=== PATIENT | male | born 1990 | race Caucasian/White ===

== ENCOUNTER 2021-08-11 10:59 | Emergency (ER) | payer SELFPAY ==
[~2021-08-11] VITALS: Ht 160 cm; Wt 75.0 kg
[2021-08-11] MEDS ORDERED: ONDANSETRON 4MG/2ML VIAL IV ONE (11:40)
[2021-08-11] MEDS ORDERED: MORPHINE 4 MG/ML 1ML VIAL/SYRINGE (J2270) IV ONE (11:40)
[2021-08-11 12:29] LABS: RSV AMPLIFICATION NEGATIVE (NEGATIVE)
--- NOTE | 2021-08-11 13:33 | REP ---
INDICATION: syncope, severe tender frontal. COMPARISON: 02/09/2011 TECHNIQUE: Axial soft tissue and bone windows with coronal reconstructions provided. FINDINGS: Lateral ventricles are midline symmetric and without dilatation or displacement. Basal ganglia were symmetric and normal 3rd and 4th ventricles unremarkable. Cortical stripe is preserved. The ruggiero-white junction differentiation is well maintained. White matter tracts are normal. There is no vascular territory infarct, intracranial hemorrhage, mass or mass effect. Brainstem and cerebellum unremarkable. Posterior fossa without hemorrhage. Basal cisterns intact. Visualized mastoids without acute finding. There is some mucosal thickening of the posterior right ethmoid air cells with the visible right maxillary, bilateral sphenoid and frontal sinuses clear the left maxillary sinus is opacified without air-fluid level or some adjacent bony abnormality. I see no fracture of the skull base or calvarium. Visualized orbits and zygomatic arches are intact. IMPRESSION: 1. No intracranial hemorrhage, acute infarct, mass, edema or mass effect. Basal cisterns intact. 2. Opacification of the left maxillary antrum and some mucosal thickening in posterior ethmoid air cells on the right. The other sinuses were clear. No visible adjacent fractures or destructive lesions of the skull base or calvarium. <Electronically signed by Ruddy Alvarenga > 08/11/21 [id number]
--- NOTE | 2021-08-11 13:36 | REP ---
INDICATION: severe tender, SOB, L abd pain, syncope. COMPARISON: None. TECHNIQUE: Standard helical technique without intravenous or oral bowel preparatory contrast administration. Stone protocol utilized due to left flank pain. FINDINGS: The lung bases are clear. The liver, gallbladder, spleen, pancreas, adrenal glands, and kidneys are within normal limits. There is no nephroureterolithiasis, hydronephrosis, or hydroureter. There are no urinary bladder calcifications. 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 The bowel loops and the mesenteries are within normal limits. The abdominal aorta and para-aortic regions are within normal limits. There is no free fluid or free air. There is no mass or adenopathy. Bone window technique throughout the examination shows the osseous structures to be within normal limits. IMPRESSION: CT findings are within normal limits. <Electronically signed by David Paredes > 08/11/21 [id number]
--- NOTE | 2021-08-11 13:40 | REP ---
INDICATION: syncope, severe tender. COMPARISON: 11/06/2006 TECHNIQUE: Trauma protocol with the soft tissue and bone window axial images in both coronal and sagittal reconstructions. FINDINGS: Cable Supervisor image demonstrates cervical collar in place. This is contributing to some straightening of the spine versus muscle spasm. Vertebral body heights are unchanged. There is no evidence of an acute compression fracture. Disc space heights preserved. No prevertebral soft tissue swelling. Small calcification anterior longitudinal ligament at C5-6 and C6-7. The spinous processes, lamina, pedicles, facets, transverse processes and transverse foramina were intact throughout. I do not see facet arthropathy. There is no spinal or foraminal stenosis. The C1-2 relationships are normal on all projections. Craniocervical and cervicothoracic junction align normally. Portions of the 1st 4 rib pairs seen were unremarkable. Lung apices are clear. Neck soft tissues without acute finding. Tracheal airway intact. IMPRESSION: 1. Negative CT cervical spine for any acute compression fracture, malalignment, spinal or foraminal stenosis. No prevertebral swelling. Posterior elements intact. Craniocervical and cervicothoracic junctions align normally. Nothing acute. <Electronically signed by Ruddy Alvarenga > 08/11/21 [id number]
--- NOTE | 2021-08-11 13:41 | REP ---
INDICATION: severe tender, SOB, L abd pain, syncope COMPARISON: None. TECHNIQUE: Standard helical technique without contrast FINDINGS: Mediastinum and pulmonary fannie are within normal limits. There are no pleural or pericardial effusions. The imaged osseous structures are within normal limits. Evaluation of the lung mckee shows a 5 mm sized right upper lobe nodule. Lung mckee are otherwise clear. IMPRESSION: There is a 5 mm size right upper lobe nodule. According to the revised Fleischner society criteria this represents a category 2 lesion for which a 1 year follow-up chest CT is recommended. <Electronically signed by David Paredes > 08/11/21 [id number]
--- NOTE | 2021-08-11 13:51 | REPVR ---
PROCEDURE INFORMATION: Exam: CT Maxillofacial Without Contrast Exam date and time: 08/11/2021 1:20 PM Age: 30 years old Clinical indication: Injury or trauma; Fall; Blunt trauma (contusions or hematomas); Orbit/periorbital; Left; Additional info: Syncope, severe tender left maxilla, orbit TECHNIQUE: Imaging protocol: Computed tomography images of the face without contrast. Radiation optimization: All CT scans at this facility use at least one of these dose optimization techniques: automated exposure control; mA and/or kV adjustment per patient size (includes targeted exams where dose is matched to clinical indication); or iterative reconstruction. COMPARISON: No relevant prior studies available. FINDINGS: Orbital cavity: Orbits are normal. Globes are unremarkable. Bones/joints: No acute fracture. No destructive bony process identified. Paranasal sinuses: Opacified left maxillary sinus, lateral retraction of the medial maxillary sinus wall. Mastoid air cells: The left mastoid pneumatization is partially contracted consistent with prior chronic otomastoiditis changes. Soft tissues: Unremarkable. Dental: Carious left mandibular anterior central incisor. Carious right maxillary lateral incisor, left maxillary canine, bilateral maxillary 2nd and 3rd molars, bilateral mandibular 3rd molars, left mandibular 2nd molar. Oropharynx: Bilateral palatine tonsillar benign tonsilloliths. IMPRESSION: 1. No acute facial bony injury identified. 2. Left maxillary sinus atelectasis. 3. Dental carious disease. Electronically signed by: Mike Cadena On 08/11/2021 13:50:36 PM
--- NOTE | 2021-08-11 14:14 | REP ---
INDICATION: syncope, tender, SOB. COMPARISON: CT chest 08/11/2021 earlier today, chest x-ray 11/25/2006. TECHNIQUE: AP portable supine chest FINDINGS: Lungs hypoinflated. Heart size not enlarged for portable supine hypoinflated chest. No dense consolidation atelectasis or mass. No widening of the mediastinum. The aorta is grossly normal. Airway intact. Delia appear symmetric. Bones without acute finding. IMPRESSION: 1. Negative AP supine chest. Heart size normal for supine portable chest with limited level of inflation. No acute lung findings. The 5 mm nodule right upper lobe on CT cannot be visualized on this examination. No widening of the mediastinum. Bones grossly intact. <Electronically signed by Ruddy Alvarenga > 08/11/21 [id number]
[2021-08-11] MEDS ORDERED: ONDANSETRON 4 MG ORAL DISINTEGRATING TAB PO ONE (14:15)
[2021-08-11] MEDS ORDERED: NORCO, ANEXSIA 5/325MG TABLET (HYDROcodone/ACETAMINOPHEN) PO ONE (14:15)
--- NOTE | 2021-08-11 14:15 | REP ---
INDICATION: syncope, severe tender, decr. ROM. COMPARISON: None. TECHNIQUE: Three views of the left shoulder were performed. FINDINGS: The acromioclavicular and glenohumeral relationships are within normal limits. There is no acute fracture or destructive osseous lesion. IMPRESSION: Within normal limits <Electronically signed by David Paredes > 08/11/21 [id number]
--- OUTSIDE RECORDS SUMMARY | 2021-08-11 14:36 | CCD ---
Author Author [facility] Organization [facility] Address Unknown Phone Unavailable Support Name Relationship Address Phone DAISY Next Of Kin [address] [place] [address] JONH PRYOR Next Of Kin [address] [place] [address] JONH TRAVIS Next Of Kin Unknown JONH TRAVIS Next Of Kin Unknown Re-disclosure Warning The records that you are about to access may contain information from federally-assisted alcohol or drug abuse programs. If such information is present, then the following federally mandated warning applies: This information has been disclosed to you from records protected by federal confidentiality rules (42 CFR part 2). The federal rules prohibit you from making any further disclosure of this information unless further disclosure is expressly permitted by the written consent of the person to whom it pertains or as otherwise permitted by 42 CFR part 2. A general authorization for the release of medical or other information is NOT sufficient for this purpose. The Federal rules restrict any use of the information to criminally investigate or prosecute any alcohol or drug abuse patient.The records that you are about to access may contain highly sensitive health information, the redisclosure of which is protected by Article 27-F of the [facility] Public Health law. If you continue you may have access to information: Regarding HIV / AIDS; Provided by facilities licensed or operated by the [facility] Office of Mental Health; or Provided by the [facility] Office for People With Developmental Disabilities. If such information is present, then the following [facility] mandated warning applies: This information has been disclosed to you from confidential records which are protected by state law. State law prohibits you from making any further disclosure of this information without the specific written consent of the person to whom it pertains, or as otherwise permitted by law. Any unauthorized further disclosure in violation of state law may result in a fine or long term sentence or both. A general authorization for the release of medical or other information is NOT sufficient authorization for further disc losure. Medications No Information Insurance Providers Payer name Policy type / Coverage type Policy ID Covered green party ID Covered green party's relationship to castañeda Policy Castañ[place] Plan Information SELF PAY SP PROGRESSIVE [id number] [facility] [id number] Problems, Conditions, and Diagnoses No Information Surgeries/Procedures No Information Results No Information Social History No Information
[2021-08-11 15:30] VITALS: BP 122/74
--- NOTE | 2021-08-11 16:49 | ED PDOC ---
Post-Departure Follow-Up certified letter sent to patient pertaining to radiology report Kaia Banegas MD Aug 11, 2021 16:49
== END 2021-08-11 15:56 | disposition home or self-care (01) ==
LOC: M ED 10:59 → EDBD 10:59 → M ED 15:56
DX: R55 Syncope and collapse (principal); M25.512 Pain in left shoulder; M54.9 Dorsalgia, unspecified; U07.1 COVID-19; S09.90XA Unspecified injury of head, initial encounter; W18.39XA Other fall on same level, initial encounter; Y92.89 Other specified places as the place of occurrence of the external cause
CPT/HCPCS: 70450; 70486; 71045; 71250; 72125; 73030; 74176; 87631; 93041; 94760; 99285; Q0162